=== PATIENT | male | born 1975 ===

== ENCOUNTER 2017-11-07 10:28 | Outpatient (CLI) | payer OTHER ==
[2017-11-07 11:17] LABS: BASOPHILS # (AUTO) 0.1 K/uL (0.0-8.0); BASOPHILS % (AUTO) 0.8 % (0.0-2.0); EOSINOPHILS % (AUTO) 0.4 % (0.0-7.0); HEMATOCRIT 42.4 % (36.7-47.1); HEMOGLOBIN 14.9 g/dL (12.5-16.3); LYMPHOCYTES # (AUTO) 2.1 K/uL (20.0-40.0); LYMPHOCYTES % (AUTO) 27.5 % (20.5-51.5); MEAN CORPUSCULAR HEMOGLOBIN 28.6 uug (23.8-33.4); MEAN CORPUSCULAR HGB CONC 35 g/dL (32.5-36.3); MEAN CORPUSCULAR VOLUME 81.6 fL (73.0-96.2); MONOCYTES # (AUTO) 0.5 K/uL (2.0-10.0); MONOCYTES % (AUTO) 6.3 % (0.0-11.0); NEUTROPHILS # (AUTO) 4.8 K/uL (1.8-8.9); PLATELET COUNT (AUTO) 195 K/uL (152-348); WHITE BLOOD COUNT (AUTO) 7.5 K/uL (3.6-10.2)
[2017-11-07 11:20] LABS: CREATININE 0.8 mg/dL (0.6-1.3); POTASSIUM 3.4 mmol/L (3.5-5.1)
[2017-11-07 11:25] LABS: BILIRUBIN,TOTAL 0.9 mg/dL (0.2-1.0)
[2017-11-07 11:36] LABS: *BILIRUBIN,URIN NEGATIVE (NEGATIVE); *BLOOD, URINE NEGATIVE (NEGATIVE); *CLARITY,URINE CLEAR (CLEAR); *KETONES,URINE NEGATIVE (NEGATIVE); *PROTEIN,URINE NEGATIVE (NEGATIVE); LEUKOCYTE ESTERASE ,URINE TRACE (NEGATIVE); NITRITE, URINE NEGATIVE (NEGATIVE); UGLUCOSE NEGATIVE (NEGATIVE)
[2017-11-07 11:40] LABS: *COLOR,URINE LIGHT YELLOW (YELLOW)
[2017-11-07 11:41] LABS: BACTERIA,URINE NONE SEEN /HPF (NONE SEEN); RBC,URINE 0-3 /HPF (0-3); SQUAMOUS EPITHELIAL CELL,UR MODERATE /HPF (NONE SEEN)
== END 2017-11-07 23:59 | disposition home or self-care (01) ==
LOC: LAB 10:28
PROVIDERS: ATTEND Internal Medicine
DX: Z01.818 Encounter for other preprocedural examination (principal)
CPT/HCPCS: 36415; 85025; 85730

== ENCOUNTER 2017-11-10 07:09 | Day surgery (SDC) | payer OTHER ==
[2017-11-10] MEDS ORDERED: PROPOFOL 200 MG/20 ML BOTTLE IV ONE (07:10)
[2017-11-10] MEDS ORDERED: LIDOCAINE HCL 2% 20 ML VIAL MC ONE (07:10)
[2017-11-10] MEDS ORDERED: SEVOFLURANE 250 ML BOTTLE IH ONE (07:10)
[2017-11-10] MEDS ORDERED: IV NORMAL SALINE 1000 ML BAG IV ONE (07:10)
[2017-11-10] MEDS ORDERED: ONDANSETRON 4 MG/2 ML VIAL IV ONE (07:10)
[2017-11-10] MEDS ORDERED: FENTANYL CITRATE 100 MCG/2 ML AMPUL ONE ×3 (08:10→10:29)
[2017-11-10] MEDS ORDERED: MIDAZOLAM HCL 2 MG/2 ML VIAL ONE (08:10)
[2017-11-10] MEDS ORDERED: MORPHINE SULFATE PF 10 MG/10 ML AMPUL IV ONE (08:14)
[2017-11-10] MEDS ORDERED: BUPIVACAINE/EPI PF 0.25% 30 ML VIAL ONE (08:15)
[2017-11-10] MEDS ORDERED: ONDANSETRON 4 MG/2 ML VIAL ONE (10:30)
[2017-11-10] MEDS ORDERED: HYDROCODONE/APAP 5-325MG TABLET ONE (11:12)
== END 2017-11-10 11:40 | disposition home or self-care (01) ==
LOC: DS 07:09
PROVIDERS: ATTEND Orthopaedic Surgery
DX: M23.204 Derangement of unspecified medial meniscus due to old tear or injury, left knee (principal)
CPT/HCPCS: 36415; 84550; J2250; J2274; J2405; J3010; J3490; J7030; J7120